=== PATIENT | female | born 1945 | race Caucasian/White ===

== ENCOUNTER 2018-03-17 07:28 | Inpatient (IN) ==
[2018-03-17 08:15] LABS: Basophils % 0.4 % (0.0-0.8); Eosinophils % 0.4 % (0.00-10.9); Hematocrit 44.9 VOL% (35.7-47.0); Hemoglobin 15.6 GM/DL (12.0-16.0); Immature Granulocytes % 0.5 %; Immature Granulocytes Absolute 0.04 #; Lymphocytes # 0.9 10*3/uL (1.4-4.0); Lymphocytes % 10.8 % (21.3-54.2); Mean Corpuscular HGB Conc 34.7 GM/DL (32-36); Mean Corpuscular Hemoglobin 34 PG (27-34); Mean Corpuscular Volume 96.8 FL (87-102); Mean Platelet Volume 10.5 FL (9.6-12.0); Monocytes # 0.5 10*3/uL (0.11-0.8); Monocytes % 6.6 % (1.7-12.7); Neutrophils # 6.7 10*3/uL (1.4-7.4); Neutrophils % 81.3 % (38.7-73.9); Platelet Count 109 T/CUMM (130-400); Red Blood Count 4.64 MC/CUMM (3.8-5.5); Red Cell Distribution Width 12.3 % (9.3-17.3); White Blood Count 8.2 T/CUMM (4-12)
[2018-03-17 08:31] LABS: Alanine Aminotransferase 25 U/L (13-56); Albumin 3.3 G/DL (3.4-5.0); Alkaline Phosphatase 70 U/L (45-117); Amylase 91 U/L (25-115); Aspartate Amino Transferase 17 U/L (0-37); Blood Urea Nitrogen 11 MG/DL (7-18); Calcium 7.7 MG/DL (8.5-10.1); Glucose 180 MG/DL (74-106); Osmolality,Calculated 286.1 MOS/KG (273-304); Potassium 3.6 MMOL/L (3.5-5.1); Sodium 142 MMOL/L (136-145); Total Protein 5.9 G/DL (6.4-8.3); Troponin I < 0.015 NG/ML (0.00-0.045)
[2018-03-17 08:34] LABS: Apearance,Urine CLEAR (Clear); Bilirubin,Urine Negative (Negative); Blood, Urine Moderate mg/dL (Negative); Glucose,Urine (UA) >=500 mg/dL (Negative); Ketones,Urine Negative (Negative); Mucus,Urine Occasional /LPF (Occasional); Nitrite,Urine Negative (Negative); Protein,Urine Negative; RBC,Urine 2 /HPF (0-4); Squamous Epithelial Cell,Urine Occasional /HPF (0-10); Urine Color Straw (Yellow); Urine Specific Gravity 1.007 (1.001-1.035); Urine Urobilinogen < 2.0 EU/DL (0.2-1.0); WBC,Urine <1 /HPF (0-6)
[2018-03-17 08:37] LABS: Barbiturates Screen,Urine Negative (Negative); Benzodiazepines Screen,Urine Negative (Negative); Cannabinoid Screen,Urine Negative (Negative); Opiate Screen,Urine Negative (Negative); Phencyclidine Screen,Urine Negative (Negative)
[2018-03-17 09:03] LABS: Hypochromasia Slight; Platelet Estimate Decreased
[2018-03-17 09:35] LABS: PT Patient Result 10.4 SECS; Partial Thromboplastin Time 22.5 SECS (0-40)
[2018-03-17] MEDS ORDERED: ACETAMINOPHEN 325 MG TABLET PO PRN (12:27)
[2018-03-17] MEDS ORDERED: SODIUM CHLORIDE 0.45% 1,000 ML IV SCH (12:27)
[2018-03-17] MEDS ORDERED: ONDANSETRON 4 MG/2 ML VIAL IV PRN (12:27)
[2018-03-17] MEDS: POTASSIUM CHLORIDE INJ 10 MEQ in SODIUM CHLORIDE 0.45% 1,000 ML IV SCH (20:55)
[2018-03-17] MEDS: ATORVASTATIN 40 MG TABLET PO SCH (20:55)
[2018-03-17] MEDS: DOCUSATE SODIUM 100 MG CAPSULE PO SCH (20:55)
[2018-03-17] MEDS ORDERED: SERTRALINE 50 MG TABLET PO SCH (21:00)
[2018-03-18 05:12] LABS: Basophils % 0.3 % (0.0-0.8); Eosinophils % 0.5 % (0.00-10.9); Hematocrit 42.3 VOL% (35.7-47.0); Hemoglobin 14.9 GM/DL (12.0-16.0); Immature Granulocytes % 0.3 %; Immature Granulocytes Absolute 0.03 #; Lymphocytes # 1.6 10*3/uL (1.4-4.0); Lymphocytes % 19.1 % (21.3-54.2); Mean Corpuscular HGB Conc 35.2 GM/DL (32-36); Mean Corpuscular Hemoglobin 33 PG (27-34); Mean Corpuscular Volume 94.8 FL (87-102); Mean Platelet Volume 10.4 FL (9.6-12.0); Monocytes # 0.8 10*3/uL (0.11-0.8); Neutrophils # 6.1 10*3/uL (1.4-7.4); Neutrophils % 70.8 % (38.7-73.9); Platelet Count 172 T/CUMM (130-400); Red Blood Count 4.46 MC/CUMM (3.8-5.5); Red Cell Distribution Width 12.1 % (9.3-17.3); White Blood Count 8.6 T/CUMM (4-12)
[2018-03-18 05:43] LABS: Blood Urea Nitrogen 9 MG/DL (7-18); Calcium 8.3 MG/DL (8.5-10.1); Free T4 (Free Thyroxine) 1.03 NG/DL (0.76-1.46); Glucose 129 MG/DL (74-106); Osmolality,Calculated 281.3 MOS/KG (273-304); Potassium 3.6 MMOL/L (3.5-5.1); Sodium 141 MMOL/L (136-145); Thyroid Stimulating Hormone 0.962 uIU/ml (0.358-3.74)
[2018-03-18 06:25] LABS: Cancer Antigen 19-9 16.7 U/ML (0-37); Folate 10.7 NG/ML (5.4-24.0)
[2018-03-18] MEDS: DOCUSATE SODIUM 100 MG CAPSULE PO SCH ×2 (08:54→20:58)
[2018-03-18] MEDS: PANTOPRAZOLE 40 MG TABLET PO SCH (08:55)
[2018-03-18 09:27] LABS: Sedimentation Rate-Westergren 4 MM/HR (0-30)
[2018-03-18] MEDS: POTASSIUM CHLORIDE INJ 10 MEQ in SODIUM CHLORIDE 0.45% 1,000 ML IV SCH (11:45)
[2018-03-18] MEDS: DONEPEZIL 10 MG TABLET PO SCH (16:00)
[2018-03-18] MEDS: ATORVASTATIN 40 MG TABLET PO SCH (20:55)
[2018-03-19] MEDS: POTASSIUM CHLORIDE INJ 10 MEQ in SODIUM CHLORIDE 0.45% 1,000 ML IV SCH ×3 (01:40→13:02)
[2018-03-19 05:47] LABS: Basophils % 0.3 % (0.0-0.8); Eosinophils % 0.6 % (0.00-10.9); Hematocrit 42.6 VOL% (35.7-47.0); Immature Granulocytes % 0.3 %; Immature Granulocytes Absolute 0.02 #; Lymphocytes # 1.8 10*3/uL (1.4-4.0); Lymphocytes % 25.6 % (21.3-54.2); Mean Corpuscular HGB Conc 35.2 GM/DL (32-36); Mean Corpuscular Hemoglobin 33 PG (27-34); Mean Platelet Volume 10.3 FL (9.6-12.0); Monocytes # 0.6 10*3/uL (0.11-0.8); Monocytes % 8.8 % (1.7-12.7); Neutrophils # 4.7 10*3/uL (1.4-7.4); Neutrophils % 64.4 % (38.7-73.9); Platelet Count 157 T/CUMM (130-400); Red Blood Count 4.53 MC/CUMM (3.8-5.5); White Blood Count 7.2 T/CUMM (4-12)
[2018-03-19 06:04] LABS: Calcium 8.2 MG/DL (8.5-10.1); Osmolality,Calculated 279.3 MOS/KG (273-304); Potassium 3.6 MMOL/L (3.5-5.1)
[2018-03-19] MEDS: PANTOPRAZOLE 40 MG TABLET PO SCH (08:42)
[2018-03-19] MEDS: DOCUSATE SODIUM 100 MG CAPSULE PO SCH ×2 (12:22→20:59)
[2018-03-19] MEDS: DONEPEZIL 10 MG TABLET PO SCH (16:26)
[2018-03-19] MEDS: ATORVASTATIN 40 MG TABLET PO SCH (20:57)
[2018-03-20 05:38] LABS: Basophils % 0.3 % (0.0-0.8); Eosinophils # 0.1 10*3/uL (0.0-0.87); Eosinophils % 0.9 % (0.00-10.9); Hematocrit 43.2 VOL% (35.7-47.0); Hemoglobin 15.4 GM/DL (12.0-16.0); Immature Granulocytes % 0.3 %; Immature Granulocytes Absolute 0.02 #; Lymphocytes # 1.3 10*3/uL (1.4-4.0); Lymphocytes % 17.7 % (21.3-54.2); Mean Corpuscular HGB Conc 35.6 GM/DL (32-36); Mean Corpuscular Hemoglobin 33 PG (27-34); Mean Corpuscular Volume 93.3 FL (87-102); Mean Platelet Volume 10.2 FL (9.6-12.0); Monocytes # 0.6 10*3/uL (0.11-0.8); Monocytes % 8.6 % (1.7-12.7); Neutrophils # 5.4 10*3/uL (1.4-7.4); Neutrophils % 72.2 % (38.7-73.9); Platelet Count 160 T/CUMM (130-400); Red Blood Count 4.63 MC/CUMM (3.8-5.5); Red Cell Distribution Width 12.1 % (9.3-17.3); White Blood Count 7.4 T/CUMM (4-12)
[2018-03-20 06:10] LABS: Calcium 8.5 MG/DL (8.5-10.1); Osmolality,Calculated 282.1 MOS/KG (273-304); Potassium 3.4 MMOL/L (3.5-5.1)
[2018-03-20] MEDS: PANTOPRAZOLE 40 MG TABLET PO SCH (08:57)
[2018-03-20] MEDS: DOCUSATE SODIUM 100 MG CAPSULE PO SCH ×2 (14:03→20:36)
[2018-03-20] MEDS: DONEPEZIL 10 MG TABLET PO SCH (16:38)
[2018-03-20] MEDS: ATORVASTATIN 40 MG TABLET PO SCH (20:36)
[2018-03-21 05:26] LABS: Calcium 8.7 MG/DL (8.5-10.1); Osmolality,Calculated 282.1 MOS/KG (273-304); Potassium 3.4 MMOL/L (3.5-5.1)
[2018-03-21] MEDS: DOCUSATE SODIUM 100 MG CAPSULE PO SCH (09:33)
[2018-03-21] MEDS: PANTOPRAZOLE 40 MG TABLET PO SCH (09:33)
[2018-03-21 12:00] VITALS: BP 143/82
[2018-03-21] MEDS ORDERED: POTASSIUM CHLORIDE 20 MEQ TABLET PO ONE (12:43)
== END 2018-03-21 13:50 | disposition home or self-care (01) | DRG 312 ==
LOC: EDUNIT# → EDBD → N.ED 07:28 → N.EDINP 10:40 → N.2W 11:17 → N.TELES 15:03
PROVIDERS: ADMIT Family Medicine; ATTEND Family Medicine

== ENCOUNTER 2019-07-09 12:47 | Observation (INO) ==
[2019-07-09 14:15] LABS: Basophils % 0.2 % (0.0-0.8); Eosinophils % 0.3 % (0.00-10.9); Hematocrit 45.2 VOL% (35.7-47.0); Hemoglobin 15.9 GM/DL (12.0-16.0); Immature Granulocytes % 0.3 %; Immature Granulocytes Absolute 0.03 #; Lymphocytes # 0.6 10*3/uL (1.4-4.0); Lymphocytes % 6.6 % (21.3-54.2); Mean Corpuscular HGB Conc 35.2 GM/DL (32-36); Mean Corpuscular Volume 95.4 FL (87-102); Mean Platelet Volume 10.3 FL (9.6-12.0); Neutrophils % 85.6 % (38.7-73.9); Platelet Count 158 T/CUMM (130-400); Red Blood Count 4.74 MC/CUMM (3.8-5.5); Red Cell Distribution Width 12.2 % (9.3-17.3); White Blood Count 9.1 T/CUMM (4-12)
[2019-07-09 14:33] LABS: Calcium 8.5 MG/DL (8.5-10.1); Osmolality,Calculated 278.8 MOS/KG (273-304)
[2019-07-09 14:41] LABS: Apearance,Urine CLEAR (Clear); Bilirubin,Urine Negative (Negative); Blood, Urine Small mg/dL (Negative); Glucose,Urine (UA) >=500 mg/dL (Negative); Hyaline Casts,Urine 10 /LPF (0-3); Ketones,Urine Negative (Negative); Mucus,Urine Occasional /LPF (Occasional); Nitrite,Urine Negative (Negative); Protein,Urine Negative; RBC,Urine 3 /HPF (0-4); Squamous Epithelial Cell,Urine Occasional /HPF (0-10); Urine Color Yellow (Yellow); Urine Specific Gravity 1.012 (1.001-1.035); Urine Urobilinogen < 2.0 EU/DL (0.2-1.0); WBC,Urine 1 /HPF (0-6)
[2019-07-09] MEDS ORDERED: GLUCAGON 1 MG VIAL IM PRN (14:57)
[2019-07-09] MEDS ORDERED: DEXTROSE 10% 25 GM/250 ML BAG IV PRN (14:57)
[2019-07-09] MEDS ORDERED: ACETAMINOPHEN 325 MG TABLET PO PRN (14:57)
[2019-07-09] MEDS ORDERED: ONDANSETRON 4 MG/2 ML VIAL IV PRN (14:57)
[2019-07-09] MEDS ORDERED: INSULIN LISPRO 100 UNIT/ML SUBCUT SCH (16:30)
[2019-07-09] MEDS: SODIUM CHLORIDE 0.45% 1,000 ML IV SCH (17:23)
[2019-07-09] MEDS: ENOXAPARIN 40 MG/0.4 ML SYRINGE SUBCUT SCH (17:48)
[2019-07-09] MEDS: ATORVASTATIN 40 MG TABLET PO SCH (21:31)
[2019-07-10] MEDS: PANTOPRAZOLE 40 MG TABLET PO SCH (08:28)
[2019-07-10] MEDS ORDERED: ENALAPRIL 20 MG TABLET PO SCH (09:00)
[2019-07-10] MEDS: SODIUM CHLORIDE 0.45% 1,000 ML IV SCH ×2 (09:49→22:02)
[2019-07-10 10:13] LABS: Folate 16.4 NG/ML (5.4-24.0)
[2019-07-10] MEDS: ASPIRIN EC 81 MG TABLET PO SCH (10:48)
[2019-07-10] MEDS: ENOXAPARIN 40 MG/0.4 ML SYRINGE SUBCUT SCH (20:52)
[2019-07-10] MEDS: ATORVASTATIN 40 MG TABLET PO SCH (20:53)
[2019-07-11 05:32] LABS: Risk Ratio 3.18; VLDL CHOLESTEROL 24.8 MG/DL
[2019-07-11] MEDS: SODIUM CHLORIDE 0.45% 1,000 ML IV SCH (06:10)
[2019-07-11 07:14] VITALS: BP 143/57
[2019-07-11] MEDS: PANTOPRAZOLE 40 MG TABLET PO SCH (08:17)
[2019-07-11] MEDS: ASPIRIN EC 81 MG TABLET PO SCH (08:17)
[2019-07-11] MEDS ORDERED: amLODIPine 10 MG TABLET PO SCH (09:00)
[2019-07-12] MEDS ORDERED: CHOLECALCIFEROL 5,000 UNIT TABLET PO SCH (09:00)
== END 2019-07-11 12:25 | disposition home or self-care (01) ==
LOC: N.ED 12:47 → N.EDINP 12:47 → N.2E 17:01
PROVIDERS: ADMIT Family Medicine; ATTEND Family Medicine

== ENCOUNTER 2019-07-29 17:44 | Inpatient (IN) ==
[2019-07-29 18:55] LABS: Basophils % 0.3 % (0.0-0.8); Eosinophils % 0.4 % (0.00-10.9); Hematocrit 41.3 VOL% (35.7-47.0); Hemoglobin 14.3 GM/DL (12.0-16.0); Immature Granulocytes % 0.4 %; Immature Granulocytes Absolute 0.03 #; Lymphocytes # 0.9 10*3/uL (1.4-4.0); Lymphocytes % 11.7 % (21.3-54.2); Mean Corpuscular HGB Conc 34.6 GM/DL (32-36); Mean Platelet Volume 10.6 FL (9.6-12.0); Monocytes % 7.6 % (1.7-12.7); Neutrophils % 79.6 % (38.7-73.9); Platelet Count 199 T/CUMM (130-400); Red Cell Distribution Width 12.3 % (9.3-17.3); White Blood Count 7.3 T/CUMM (4-12)
[2019-07-29 19:03] LABS: INR 0.9; PT Patient Result 10.1 SECS (9.6-12.2); Partial Thromboplastin Time 24.2 SECS (20.8-36.0)
[2019-07-29 19:06] LABS: Alanine Aminotransferase 22 U/L (13-56); Albumin 3.5 G/DL (3.4-5.0); Alkaline Phosphatase 86 U/L (45-117); Aspartate Amino Transferase 15 U/L (0-37); Blood Urea Nitrogen 8 MG/DL (7-18); Estimated Glom Filtration Rate 53 ML/MIN; Glucose 162 MG/DL (74-106); Osmolality,Calculated 278.5 MOS/KG (273-304); Total Protein 6.4 G/DL (6.4-8.3)
[2019-07-29 19:08] LABS: Amorphous Crystals,Urine Occasional /HPF (Few); Apearance,Urine Slightly Hazy (Clear); Bacteria,Urine Moderate /HPF (Few); Bilirubin,Urine Negative (Negative); Blood, Urine Moderate mg/dL (Negative); Glucose,Urine (UA) 50 mg/dL (Negative); Ketones,Urine Negative (Negative); Nitrite,Urine Negative (Negative); Protein,Urine Negative; RBC,Urine 2 /HPF (0-4); Squamous Epithelial Cell,Urine Occasional /HPF (0-10); Urine Color Yellow (Yellow); Urine Specific Gravity 1.003 (1.001-1.035); Urine Urobilinogen < 2.0 EU/DL (0.2-1.0)
[2019-07-29] MEDS ORDERED: ASPIRIN 325 MG TABLET PO STA (19:28)
[2019-07-29] MEDS ORDERED: ENOXAPARIN 30 MG/0.3 ML SYRINGE SUBCUT STA (19:37)
[2019-07-29] MEDS ORDERED: ACETAMINOPHEN 325 MG TABLET PO PRN (19:39)
[2019-07-29] MEDS ORDERED: ONDANSETRON 4 MG/2 ML VIAL IV PRN (19:39)
[2019-07-29] MEDS ORDERED: ATORVASTATIN 40 MG TABLET PO SCH (20:00)
[2019-07-29] MEDS: DOCUSATE SODIUM 100 MG CAPSULE PO SCH (21:33)
[2019-07-30] MEDS: DOCUSATE SODIUM 100 MG CAPSULE PO SCH ×2 (09:09→21:29)
[2019-07-30] MEDS: PANTOPRAZOLE 40 MG TABLET PO SCH (09:09)
[2019-07-30] MEDS ORDERED: POTASSIUM CHLORIDE 8 MEQ CAPSULE PO ONE (10:08)
[2019-07-30 17:26] LABS: Folate 18.1 NG/ML (5.4-24.0)
[2019-07-31] MEDS: DOCUSATE SODIUM 100 MG CAPSULE PO SCH ×2 (11:14→21:03)
[2019-07-31] MEDS: MEMANTINE 5 MG TABLET PO SCH (11:14)
[2019-07-31] MEDS: PANTOPRAZOLE 40 MG TABLET PO SCH (11:14)
[2019-07-31] MEDS: CHOLECALCIFEROL 5,000 UNIT TABLET PO SCH (11:15)
[2019-08-01 06:20] LABS: Basophils % 0.5 % (0.0-0.8); Eosinophils # 0.1 10*3/uL (0.0-0.87); Hematocrit 42.7 VOL% (35.7-47.0); Hemoglobin 14.9 GM/DL (12.0-16.0); Immature Granulocytes % 0.4 %; Immature Granulocytes Absolute 0.03 #; Lymphocytes # 1.7 10*3/uL (1.4-4.0); Lymphocytes % 22.4 % (21.3-54.2); Mean Corpuscular HGB Conc 34.9 GM/DL (32-36); Mean Corpuscular Volume 94.7 FL (87-102); Monocytes % 8.7 % (1.7-12.7); Platelet Count 198 T/CUMM (130-400); Red Blood Count 4.51 MC/CUMM (3.8-5.5); Red Cell Distribution Width 11.9 % (9.3-17.3); White Blood Count 7.4 T/CUMM (4-12)
[2019-08-01 06:43] LABS: Albumin 3.2 G/DL (3.4-5.0); Bilirubin,Total 0.8 MG/DL (0.2-1.0); Calcium 8.5 MG/DL (8.5-10.1)
[2019-08-01] MEDS: CHOLECALCIFEROL 5,000 UNIT TABLET PO SCH (08:40)
[2019-08-01] MEDS: DOCUSATE SODIUM 100 MG CAPSULE PO SCH (08:40)
[2019-08-01] MEDS: PANTOPRAZOLE 40 MG TABLET PO SCH (08:41)
[2019-08-01] MEDS: MEMANTINE 5 MG TABLET PO SCH (08:41)
[2019-08-01 08:43] VITALS: BP 136/67
[2019-08-01] MEDS ORDERED: CLOPIDOGREL 75 MG TABLET PO SCH (09:00)
== END 2019-08-01 09:04 | disposition home or self-care (01) | DRG 65 ==
LOC: EDBD → EDUNIT# → N.ED 17:44 → N.EDINP 19:39 → N.TELES 20:28
PROVIDERS: ADMIT Family Medicine; ATTEND Family Medicine